=== PATIENT | male | born 1940 | race Caucasian/White ===

== ENCOUNTER → 2022-10-20 | Outpatient (CLI) | payer MEDICARE, BC, SELFPAY | END | disposition home or self-care (01) | LOC: LABSPEC 16:44 | PROVIDERS: Visit Provider Physician Assistant | DX: R30.0 Dysuria (principal) | CPT/HCPCS: 87086 ==

== ENCOUNTER → 2022-11-09 | Outpatient (CLI) | payer MEDICARE, BC, SELFPAY ==
[2022-11-09 13:07] LABS: PSA,Total - Annual Screen 0.25 ng/mL (0.00-4.00)
== END | disposition home or self-care (01) ==
PROVIDERS: Referring Provider Nurse Practitioner; Visit Provider Nurse Practitioner
DX: Z12.5 Encounter for screening for malignant neoplasm of prostate (principal)
CPT/HCPCS: 36415; 84153; G0103

== ENCOUNTER → 2023-03-30 | Outpatient (CLI) | payer MEDICARE, BC, SELFPAY ==
[2023-03-30 15:23] LABS: Absolute Lymphocyte Count 1.07 X10^3/uL (0.83-4.51); Absolute Neutrophil Count 3.3 X10^3/uL (2.0-7.7); Basophil# 0.02 X10^3/uL; Basophil% 0.4 % (0-1); Hematocrit 36.5 % (40-54); Hemoglobin 11.6 g/dL (13.0-16.5); Lymphocyte # 1.07 X10^3/ul (0.83-4.51); Mean Corp Hgb Conc 31.8 g/dL (32-36); Mean Corpuscular Hgb 30.1 pg (27.0-32.0); Mean Corpuscular Volume 94.8 fL (80-94); Mean Platelet Vol. 10.6 fl (6.2-12.0); Monocyte# 0.31 X10^3/uL; Monocyte% 6.7 % (0-10); NRBC Flagged by Analyzer 0 % (0-5); Neutrophil # 3.26 X10^3/uL (2.7-7.7); Neutrophil % 69.9 % (47-70); Platelet Count 211 K/mm3 (150-450); RBC Distribution Width CV 13.4 % (11.6-14.6); RBC Distribution Width SD 46.1 fl (35.1-43.9); Red Blood Count 3.85 M/mm3 (4.6-6.2); White Blood Count 4.7 K/mm3 (4.4-11.0)
[2023-03-30 15:49] LABS: ALB/GLOB Ratio 0.9 RATIO (0.9-2.4); AST(SGOT) 16 U/L (15-37); Alanine Aminotransfer ALT/SGPT 21 U/L (16-61); Albumin, Serum 3.6 g/dL (3.2-5.0); Alkaline Phosphatase 58 U/L (45-117); Anion Gap 6 (5-15); BUN 17 mg/dL (7-18); BUN/Creat Ratio 25.9 RATIO (10-20); Calcium,Total 9.4 mg/dL (8.5-10.1); Chloride 108 mmol/L (98-107); Creatinine, Serum 0.66 mg/dL (0.70-1.30); EST Glomerular Filtration Rate 123 mL/min (>60); Est Glom Filt Rate - Afr Amer 149 mL/min (>60); Globulin 3.8 g/dL (2.2-4.2); Glucose 103 mg/dL (74-106); Potassium 4.2 mmol/L (3.5-5.1); Protein, Total 7.4 g/dL (6.4-8.2); Sodium Level 139 mmol/L (136-145); Thyroid Stim Hormone (TSH) 1.03 uIU/mL (0.358-3.74)
[2023-03-30 16:05] LABS: Vitamin B12 541 pg/mL (211-911); Vitamin D,25 Hydroxy 55.7 ng/mL
== END | disposition home or self-care (01) ==
LOC: BFHLAB 14:20
PROVIDERS: PCP Family Medicine; Visit Provider Family Medicine
DX: R53.83 Other fatigue (principal); F03.90 Unspecified dementia, unspecified severity, without behavioral disturbance, psychotic disturbance, mood disturbance, and anxiety; R42 Dizziness and giddiness; Z51.81 Encounter for therapeutic drug level monitoring; E55.9 Vitamin D deficiency, unspecified; Z78.9 Other specified health status
CPT/HCPCS: 36415; 80053; 82140; 82306; 82607; 82746; 84443; 85025

== ENCOUNTER 2023-05-05 13:30 | Outpatient (RCR) | payer MEDICARE, OTHER, SELFPAY ==
--- NOTE | 2023-04-08 13:49 | HP.PTEVAL_ITS ---
Patient's Visit Information Visit Information Visit Information: TYSON FONTANEZ Jr. is a 83 year old M referred to Physical Therapy by Dr. Rikki Wang DO with a diagnosis of OA many joints. Date of Evaluation: 04/08/23 Physical Therapist: YOVANY Alonso Visit Plan Frequency: 1-2x /Week Duration: 2 Months Plan: 2X/ week for 8 weeks for gait training focus on straight knees and heel to toe gait pattern, LE strength (sit to stand and proper squat formation), balance with HEP HEP; supine QS, standing heel and toe raises, gait with straight knees and walker at home Subjective Subjective: Pt has pain in his R knee. It is getting better. He was doing Squats on a daily basis and it finally gotten to him. Dr Wang thinks he needs a full rehab. He has fallen once or twice. He has to go up and down stairs where he lives. He is using the cane. He has been here from [place] since July. His brother Barry gave most of subj info. He wants exercises for the rest of his body. He does not remember being SOB but brother reports that he is. He reads a lot. He goes up and down stairs for some exercises. He also watches a lot of TV. He also does some sketching from the year past. He has one had railing and typically goes up one step at a time. He sleeps well at night. Pain R knee pain: Pain Intensity (Out of 10): 1 Objective Objective: Gait: walks with shorter stride length, B knees bent, decreased heel to toe gait pattern, decrease hip extension. Had pt walk with a front wheeled walker and with more straight knees and heel to toe gait pattern and he did walk much better Heel and toe raises: Decreased ROM both directions and weakness sit to stand: uses his hand on the seat of the chair to stand on first attempt Stairs: up and down recip with 2 hand rails LE MMT: R hip flex 16.1 and L hip flex 13.8 R knee ext 33.3 and L 36.2 R knee flex 18 and L 19.3 R hip abd 12.3 and L 12.8 R knee AROM -5 to 117 L knee AROM 0-120 Full functional AROM B UE's 11.9 and 11.4 shoulder flexion FGA 9 with a cane Balance/Special Test Scores Functional Gait Assessment Score: 9 % Disability: 70.0000 Lower Extremity Functional Score: 31 Goals Goal 1:: I HEP Goal Time Frame: 6-8 Weeks Goal 2:: Walk with straighter knees and heel to toe gait pattern with a straight cane Goal Time Frame: 6-8 Weeks Goal 3:: Be able to sit to stand out of a chair X 10 without no UE support Goal Time Frame: 6-8 Weeks Goal 4:: Improve balance (FGA was 9 at the eval) Goal Time Frame: 6-8 Weeks Rehabilitation Potential Rehabilitation Potential: Good Anticipated Interventions Patient/Client Instruction: Educate patient on: Condition and Plan of Care For the Purpose of:: To increase ROM, To improve nutrient delivery to tissue, To improve muscle performance and motor function, To improve ability to perform ADL's, To increase tolerance to activity/condition/position, To improve performance and independence with ADL's, To decrease level of supervision to perform tasks, To improve ability of physical actions for home/community/work/leisure, To improve gait and locomotor functions, To improve health of tissue, To decrease soft tissue restriction, To increase flexibility/ROM, To improve endurance, To improve balance and To improve safety with gait Therapeutic Exercise to Include: Strength training, Endurance training, Balance training, Postural training, Flexibilty training, Gait and locomotor training, Neuromotor development, Active ROM and Dynamic Lumbar Stabilization For the Purpose of:: To improve muscle performance and motor function, To improve ability to perform ADL's, To increase tolerance to activity/condition/position, To improve performance and independence with ADL's, To decrease level of supervision to perform tasks, To improve ability of physical actions for home/community/work/leisure, To improve gait and locomotor functions, To improve health of tissue, To decrease soft tissue restriction, To increase flexibility/ROM, To improve endurance, To improve balance and To improve safety with gait Functional Training to Include: Gait training For the Purpose of:: To improve gait and locomotor functions and To improve safety with gait Text: Thank you for the opportunity to evaluate your patient. For Medicare and Medicare HMO plans, please review the plan of care and approve it. It will need to be FAXED BACK to us at [phone] for Medicare purposes. For Medicare only, by signing this I certify the plan of care. Please let me know if there are questions or concerns regarding this plan of care. Physician Signature: Date:
--- NOTE | 2023-05-05 14:10 | HP.PTREVAL_ITS ---
Re-Evaluation Intro: Dr. Rikki Wang, DO, It has been my pleasure to treat TYSON FONTANEZ Jr. over the last 9 visits for OA many joints. Please see the progress note below for an update on the physical therapy plan of care! Subjective Subjective: Pt is ready to work today. His caregiver reports that he has been trying to walk around with holding his cane up in the air and they have been yelling at him about it Objective Objective/Function: TALK LOUD...SELAWIK Pt still needs VC how to get on and off the machine and needing VC for upright posture and not to walk with flexed knees Plan Plan Plan: 2X/ week for 8 weeks for gait training focus on straight knees and heel to toe gait pattern, LE strength (sit to stand and proper squat formation), balance with HEP HEP; supine QS, standing heel and toe raises, gait with straight knees and walker at home Balance/Gait/Functional tests Balance/Special Test Scores Functional Gait Assessment Score: 9 % Disability: 70.0000 Lower Extremity Functional Score: 31 Goals Goals Goal 1:: I HEP Goal Time Frame: 6-8 Weeks Goal 2:: Walk with straighter knees and heel to toe gait pattern with a straight cane Goal Time Frame: 6-8 Weeks Goal 3:: Be able to sit to stand out of a chair X 10 without no UE support Goal Time Frame: 6-8 Weeks Goal 4:: Improve balance (FGA was 9 at the eval) Goal Time Frame: 6-8 Weeks Anticipated Interventions Anticipated Interventions Patient/Client Instruction: Educate patient on: Condition and Plan of Care For the Purpose of:: To increase ROM, To improve nutrient delivery to tissue, To improve muscle performance and motor function, To improve ability to perform ADL's, To increase tolerance to activity/condition/position, To improve performance and independence with ADL's, To decrease level of supervision to perform tasks, To improve ability of physical actions for home/community/work/leisure, To improve gait and locomotor functions, To improve health of tissue, To decrease soft tissue restriction, To increase flexibility/ROM, To improve endurance, To improve balance and To improve safety with gait Therapeutic Exercise to Include: Strength training, Endurance training, Balance training, Postural training, Flexibilty training, Gait and locomotor training, Neuromotor development, Active ROM and Dynamic Lumbar Stabilization For the Purpose of:: To improve muscle performance and motor function, To improve ability to perform ADL's, To increase tolerance to activity/condition/position, To improve performance and independence with ADL's, To decrease level of supervision to perform tasks, To improve ability of physical actions for home/community/work/leisure, To improve gait and locomotor functions, To improve health of tissue, To decrease soft tissue restriction, To increase flexibility/ROM, To improve endurance, To improve balance and To improve safety with gait Functional Training to Include: Gait training For the Purpose of:: To improve gait and locomotor functions and To improve safety with gait Re-Evaluation Ending Re-evaluation ending: Please do not hesitate to contact me at [phone] by phone or Fax: if you have questions or concerns regarding this new plan of care! Sincerely, Debra Leigh, MPT
--- NOTE | 2023-07-28 12:15 | HP.PT.NRP(2) ---
Patient Information Patient Information: TYSON FONTANEZ Jr. was seen in my office for initial evaluation on . The following Plan of Care was established for this patient: Last Seen Last Seen: This patient was last seen in our office . Pertinent comments regarding their Physical therapy will appear below: At this point I will be discontinuing this patient from physical therapy. I would be happy to see this patient again in the future if found appropriate by the physician. Thank you! Debra Leigh, MPT
== END 2023-05-05 19:00 | disposition home or self-care (01) ==
LOC: PT 13:30
PROVIDERS: PCP Family Medicine; Visit Provider Family Medicine
DX: M15.9 Polyosteoarthritis, unspecified (principal)
CPT/HCPCS: 97110; 97162

== ENCOUNTER 2023-09-04 12:39 | Emergency (ER) | payer MEDICARE, OTHER, SELFPAY ==
[2023-09-04 12:39] VITALS: BP 150/69; PULSE 68; RESP 16; TEMP 36.6; O2SAT 99
--- NOTE | 2023-09-04 12:58 | ED.VIS.CHEST ---
HPI History of Present Illness Chief Complaint: Chest Pain Informant: patient Onset/Context/Timing Onset: Days (2) Activity at onset: gradual Timing: Continuous Quality: Positive for Pressure Location: Substernal Worsened By: Nothing Relieved By: Nothing Associated Symptoms: Positive for Dyspnea and Cough; Negative for Nausea, Vomiting, Diaphoresis, Fever, Lightheadedness, Acid Reflux or Palpitations Narrative Narrative: Patient presents with chest pain that has gotten worse over the past 2 days. Patient describes it as a pressure sensation. Patient states it is over the lower substernal area. Patient denies any radiation of the pain. Patient states nothing makes it better nothing makes it worse. Patient denies any nausea or vomiting. Patient denies any diaphoresis. Patient does admit to some shortness of breath and cough. Patient denies any neck or back pain. Patient denies any palpitations. CVD Risk Factors: Positive for Hypertension; Negative for Diabetes, Hypercholesterolemia, Family History 1' </=55 or Smoking PE Risk Factors: Positive for Cancer; Negative for Recent Travel/Surgery, Recent Immobilization or Prior DVT or PE [facility] Medical History (Updated 09/04/23 @ 15:[address] Trell Kim DO) Myalgia Urinary incontinence Nocturia Memory loss of unknown cause Home Medications ?Medication ?Instructions ?Recorded ?Last Taken ?Type meloxicam 7.5 mg tablet 7.5 mg PO DAILY #30 tabs 10/20/22 Unknown Rx donepezil 5 mg tablet 5 mg PO QHS 09/04/23 Unknown History memantine 5 mg tablet 5 mg PO BID 09/04/23 Unknown History oxybutynin chloride 5 mg 5 mg PO QHS 09/04/23 Unknown History tablet,extended release 24 hr Allergy/AdvReac Type Severity Reaction Status Date / Time No Known Allergies Allergy Verified 09/04/23 12:40 Surgical History (Updated 09/04/23 @ 13:[address] Trell Kim DO) Status post surgical removal of malignant neoplasm of skin Social History (Updated 09/04/23 @ 13:[address] Trell Kim DO) Smoking Status: Never smoker alcohol intake: current alcohol intake frequency: 0-2 drinks per day Alcohol type: wine ROS ROS ED Constitutional Constitutional ED: Denies chills or fever(s) Eyes Eyes: Denies blurry vision or change in vision ENT ENT ED: Denies rhinorrhea or sore throat Cardiovascular Cardiovascular: Reports chest pain; Denies palpitations Respiratory/Chest Respiratory/Chest: Reports dyspnea; Denies cough Gastrointestinal Gastrointestinal: Denies nausea or vomiting Genitourinary Genitourinary ED: Denies dysuria or hematuria Musculoskeletal Musculoskeletal: Denies back pain or neck pain Integumentary Denies abscess or rash Neurologic Neurologic: Denies headache(s) or weakness Allergic/Immunologic Allergic/Immunologic ED: Denies mouth swelling or urticaria EXAM Physical Exam Const Vital Signs: 09/04/23 12:39 09/04/23 13:06 09/04/23 13:39 Temperature 97.8 F Temperature Source Temporal Pulse Rate 68 58 L Respiratory Rate 16 16 Blood Pressure 150/69 H 172/73 H Blood Pressure Mean 96 106 Pulse Ox 99 97 Oxygen Delivery Method Room Air Room Air Room Air 09/04/23 14:00 09/04/23 15:00 Temperature Temperature Source Pulse Rate 56 L 56 L Respiratory Rate 16 16 Blood Pressure 118/74 116/86 H Blood Pressure Mean 88 96 Pulse Ox 100 100 Oxygen Delivery Method Room Air Room Air Positive well nourished and well developed General Appearance ED: well developed and NAD HEENT Reports moist mucous membranes normocephalic and atraumatic Neck supple and no JVD Chest Wall inspection of chest normal and palpation of chest normal Resp normal respiratory effort and clear to auscultation bilaterally Cardio regular rate and regular rhythm GI soft to palpation, non-tender and non-distended Neuro oriented x3, CN's II-XII intact bilaterally and no sensory deficits noted Sensorium / Orientation: awake and alert Motor Exam: strength 5/5 throughout Heart Score History: Slightly/Non-Suspicious ECG: Normal Age: >/= 65 years Risk Factors: 1 or 2 Risk Factors Troponin: </= Normal Limit Score: 3 MDM MDM MDM Narrative Medical decision making narrative: Differential diagnosis includes cardiac dysrhythmia, cardiac ischemia, pneumonia, pneumothorax, GERD, musculoskeletal pain, anxiety, and pulmonary embolism. EKG will be obtained to assess for cardiac dysrhythmia and cardiac ischemia. Chest x-ray will be obtained to assess for pneumonia and pneumothorax. CBC will be obtained to assess for leukocytosis and anemia. Basic metabolic profile will be obtained to assess for electrolyte abnormality and renal function. High-sensitivity troponin will be obtained to assess for cardiac ischemia. D-dimer will be obtained to assess for pulmonary embolism. 2-hour repeat high-sensitivity troponin will be obtained to assess for ongoing cardiac ischemia. Lab Data Attestation: I reviewed the patient's lab results. Lab results narrative: CBC was reviewed. There is a mild anemia with a hemoglobin of 12.6 and hematocrit 39.2. Basic metabolic profile was reviewed and was within normal limits. Initial high-sensitivity troponin was reviewed and was normal at 7. 2-hour repeat high-sensitivity troponin was reviewed and was normal at 7. Labs: Laboratory Results - last 24 hr 09/04/23 09/04/23 12:50 15:00 WBC 5.3 RBC 4.13 L Hgb 12.6 L Hct 39.2 L MCV 94.9 H MCH 30.5 MCHC 32.1 RDW Std Deviation 44.8 H RDW Coeff of [place] 12.8 Plt Count 194 MPV 10.6 Immature Gran % (Auto) 0.200 Neut % (Auto) 61.0 Lymph % (Auto) 30.8 [place] % (Auto) 7.4 Eos % (Auto) 0.0 Baso % (Auto) 0.6 Absolute Neuts (auto) 3.2 Absolute Lymphs (auto) 1.63 Nucleated RBC % 0 Sodium 137 Potassium 3.7 Chloride 106 Carbon Dioxide 23.0 Anion Gap 8 BUN 13 Creatinine 0.75 Est GFR (MDRD) Af Amer 128 Est GFR (MDRD) Non-Af 106 BUN/Creatinine Ratio 17.4 Glucose 100 Calcium 9.5 Troponin I High Sens 7 7 Radiography Chest X-Ray - ED: 1 View, Read by ED Physician, Read by Radiologist and No Acute Disease Diagnostic Testing: Clinical Impression(s) from Imaging Studies Chest X-Ray 09/04/23 13:06 IMPRESSION: No acute cardiopulmonary disease. Electronically Signed: Francesco Euceda MD at 13:42 EDT , Portable 1 view chest x-ray was obtained. On my independent interpretation, lung jenkins are clear. There is normal cardiac silhouette. Bony thorax is normal. There is no acute process noted. Radiologist also interpreted the x-ray and agrees. EKG Initial EKG: Attestation: I personally reviewed and interpreted this EKG as follows: Interpretation: Sinus Rhythm (65) and No Acute Injury Pattern Comments: EKG was obtained. On my independent interpretation, it showed a normal sinus rhythm with a rate of 65. DE interval, QRS interval, and QTc intervals were all normal. [place] was normal. There are no acute ST or T wave changes. Prior EKG tracings: not available for review Prior: No Prior Treatment and Re-Evaluation :: Patient was given aspirin here. Patient was advised of his findings. Patient has a HEART score of 3. Patient was advised that this is low risk for acute cardiac event. Patient was instructed to follow-up with his primary care physician in 5 to 7 days. Patient and family understood and were agreeable with the plan. All questions were answered. Discharge Plan Triage Chief Complaint: Chest Pain ED Provider: Trell Kim Dx/Rx/DC Orders Clinical Impression: Chest pain, Elevated blood pressure reading Instructions: ED Chest Pain, Uncertain Cause Prescriptions: No Action meloxicam 7.5 mg tablet 7.5 mg PO DAILY Qty: 30 0RF donepezil 5 mg tablet 5 mg PO QHS oxybutynin chloride 5 mg tablet extended release 24hr 5 mg PO QHS memantine 5 mg tablet 5 mg PO BID Primary Care Provider: Rikki Wang Referrals: Rikki Wang DO [Primary Care Provider] - 5-7 Days Print Language: Hebrew Disposition Disposition: Home, Self Care
--- NOTE | 2023-09-04 13:06 | EKG12_ITS ---
Test Reason : CP Blood Pressure : / mmHG Vent. Rate : 065 BPM Atrial Rate : 065 BPM P-R Int : 174 ms QRS Dur : 094 ms QT Int : 410 ms P-R-T Axes : 008 013 036 degrees QTc Int : 426 ms Normal sinus rhythm Increased R/S ratio in V1, consider early transition or posterior infarct Abnormal ECG Confirmed by MALINDA BARCENAS, TERESA ([id number]), food editor JEFF HOYT ([id number]) on 09/06/2023 9:50:40 AM Referred By: DEJON Confirmed By:TERESA PETTY MD
--- NOTE | 2023-09-04 13:06 | RAD_ITS ---
STUDY: X-RAY CHEST REASON FOR EXAM: Male, 83 years old. Chest pain TECHNIQUE: Single AP portable view of the chest. COMPARISON: None. FINDINGS: There are monitoring devices. The lungs are clear and expanded. There is no demonstrated pleural abnormality. Normal size heart. Normal mediastinum and geno. Normal visualized pulmonary arteries. Normal visualized aortic arch and descending thoracic aorta. There is demineralization of the osseous structures. Normal visualized ribs, clavicles, and shoulders. There is no demonstrated abnormality of the visualized soft tissue structures of the upper abdomen. RAD/Chest 1 View (Portable) IMPRESSION: No acute cardiopulmonary disease. Electronically Signed: Francesco Euceda MD at 13:42 EDT ,
--- NOTE | 2023-09-04 13:09 | NURSING ---
NO OLD EKGS
[2023-09-04 13:15] LABS: Absolute Lymphocyte Count 1.63 X10^3/uL (0.83-4.51); Absolute Neutrophil Count 3.2 X10^3/uL (2.0-7.7); Basophil# 0.03 X10^3/uL; Basophil% 0.6 % (0-1); Hematocrit 39.2 % (40-54); Hemoglobin 12.6 g/dL (13.0-16.5); Lymphocyte # 1.63 X10^3/ul (0.83-4.51); Lymphocyte % 30.8 % (19-41); Mean Corp Hgb Conc 32.1 g/dL (32-36); Mean Corpuscular Hgb 30.5 pg (27.0-32.0); Mean Corpuscular Volume 94.9 fL (80-94); Mean Platelet Vol. 10.6 fl (6.2-12.0); Monocyte# 0.39 X10^3/uL; Monocyte% 7.4 % (0-10); NRBC Flagged by Analyzer 0 % (0-5); Neutrophil # 3.24 X10^3/uL (2.7-7.7); Platelet Count 194 K/mm3 (150-450); RBC Distribution Width CV 12.8 % (11.6-14.6); RBC Distribution Width SD 44.8 fl (35.1-43.9); Red Blood Count 4.13 M/mm3 (4.6-6.2); White Blood Count 5.3 K/mm3 (4.4-11.0)
[2023-09-04] MEDS: Aspirin 81 MG TAB.CHEW 324 MG PO (13:16)
[2023-09-04 13:39] VITALS: BP 172/73; PULSE 58; RESP 16; O2SAT 97
[2023-09-04 13:42] LABS: Anion Gap 8 (5-15); BUN 13 mg/dL (7-18); BUN/Creat Ratio 17.4 RATIO (10-20); Calcium,Total 9.5 mg/dL (8.5-10.1); Chloride 106 mmol/L (98-107); Creatinine, Serum 0.75 mg/dL (0.70-1.30); EST Glomerular Filtration Rate 106 mL/min (>60); Est Glom Filt Rate - Afr Amer 128 mL/min (>60); Glucose 100 mg/dL (74-106); Potassium 3.7 mmol/L (3.5-5.1); Sodium Level 137 mmol/L (136-145); Troponin-I HS (w/2H Reflex) 7 pg/mL (3.0-78.0)
[2023-09-04 14:00] VITALS: BP 118/74; PULSE 56; RESP 16; O2SAT 100
[2023-09-04 15:00] VITALS: BP 116/86; PULSE 56; RESP 16; O2SAT 100
[2023-09-04 15:11] LABS: Reflex Troponin-HS? (from REC) Y
[2023-09-04 15:45] LABS: Troponin-I HS 7 pg/mL (3.0-78.0)
[2023-09-04 15:49] VITALS: BP 139/74; PULSE 71; RESP 16; TEMP 36.3; O2SAT 99
== END 2023-09-04 16:02 | disposition home or self-care (01) ==
PROVIDERS: Emergency Provider Emergency Medicine; PCP Family Medicine; Visit Provider Emergency Medicine
DX: R07.9 Chest pain, unspecified (principal); R03.0 Elevated blood-pressure reading, without diagnosis of hypertension; R06.02 Shortness of breath
CPT/HCPCS: 71045; 80048; 84484; 85025; 93005; 99284; A4216

== ENCOUNTER → 2024-05-11 | Outpatient (CLI) | payer MEDICARE, OTHER, SELFPAY ==
[2024-05-11 15:17] LABS: Absolute Lymphocyte Count 1.05 X10^3/uL (0.83-4.51); Absolute Neutrophil Count 2.1 X10^3/uL (2.0-7.7); Basophil# 0.03 X10^3/uL; Basophil% 0.9 % (0-1); Eosinophil# 0.07 X10^3/uL; Hematocrit 36.2 % (40-54); Hemoglobin 11.7 g/dL (13.0-16.5); Lymphocyte # 1.05 X10^3/ul (0.83-4.51); Lymphocyte % 30.3 % (19-41); Mean Corp Hgb Conc 32.3 g/dL (32-36); Mean Corpuscular Hgb 30.7 pg (27.0-32.0); Mean Platelet Vol. 11.5 fl (6.2-12.0); Monocyte# 0.24 X10^3/uL; Monocyte% 6.9 % (0-10); NRBC Flagged by Analyzer 0 % (0-5); Neutrophil # 2.07 X10^3/uL (2.7-7.7); Neutrophil % 59.6 % (47-70); Platelet Count 157 K/mm3 (150-450); RBC Distribution Width CV 12.6 % (11.6-14.6); RBC Distribution Width SD 43.9 fl (35.1-43.9); Red Blood Count 3.81 M/mm3 (4.6-6.2); White Blood Count 3.5 K/mm3 (4.4-11.0)
[2024-05-11 16:02] LABS: AST(SGOT) 15 U/L (15-37); Alanine Aminotransfer ALT/SGPT 18 U/L (16-61); Albumin, Serum 3.7 g/dL (3.2-5.0); Alkaline Phosphatase 53 U/L (45-117); Anion Gap 5 (5-15); BUN 12 mg/dL (7-18); BUN/Creat Ratio 17.9 RATIO (10-20); Calcium,Total 9.2 mg/dL (8.5-10.1); Chloride 109 mmol/L (98-107); Creatinine, Serum 0.67 mg/dL (0.70-1.30); EST Glomerular Filtration Rate 119 mL/min (>60); Est Glom Filt Rate - Afr Amer 144 mL/min (>60); Globulin 3.6 g/dL (2.2-4.2); Glucose 100 mg/dL (74-106); Potassium 3.7 mmol/L (3.5-5.1); Protein, Total 7.3 g/dL (6.4-8.2); Sodium Level 140 mmol/L (136-145)
== END | disposition home or self-care (01) ==
LOC: BFHLAB 13:37
PROVIDERS: PCP Family Medicine; Visit Provider Family Medicine
DX: D64.9 Anemia, unspecified (principal); Z51.81 Encounter for therapeutic drug level monitoring
CPT/HCPCS: 36415; 80053; 85025